=== PATIENT | male | born 1985 | race Hispanic/Latino ===

== ENCOUNTER 2024-06-24 10:33 | Emergency (ER) | payer BC ==
[~2024-06-24] VITALS: Ht 188 cm; Wt 81.6 kg
[2024-06-24] MEDS ORDERED: SULF1TAB42 PO (10:52)
--- NOTE | 2024-06-24 10:55 | ERN ---
General Chief Complaint: Abscess Stated Complaint: LOWER BACK PAIN Time Seen by MD: 10:35 Time Seen by Midlevel: 10:35 Source: patient History of Present Illness Initial Comments Patient is a 38-year-old male with no significant past medical history presenting to the emergency department with an abscess to the left upper buttock area just below the left side of his lower back that started several days ago. Patient states he has had this for several years but over the last couple of weeks it has progressively worsened. He was noticed an increase in redness and pain to the area so he decided to report to the ER for further evaluation. He specifically denies fever, chills, or any other symptoms at this time. Denies seeing a primary care doctor for this issue. Has not taking any oral antibiotics recently. Denies any past medical/surgical history. Allergies: Coded Allergies: No Known Allergies (Unverified Allergy, Unknown, 06/24/24) Home Meds Active Scripts Sulfamethoxazole/Trimethoprim (Bactrim Ds Tablet) 800 Mg-160 Mg Tablet, 1 TAB PO BID for 7 Days, #14 TAB 0 Refills Prov:CAMILLE FOSTER 06/24/24 Past Medical History Past Medical History: No Pertinent History Past Surgical History: None ROS Dictation CONSTITUTIONAL: Negative except for HPI HEAD/FACE: Negative except for HPI EENT: Negative except for HPI RESPIRATORY: Negative except for HPI GASTROINTESTINAL/ABDOMINAL: Negative except for HPI GENITOURINARY: Negative except for HPI MUSCULOSKELETAL: Negative except for HPI INTEGUMENTARY: Negative except for HPI NEUROLOGICAL/PSYCH: Negative except for HPI HEMATOLOGIC/LYMPHATIC: Negative except for HPI All Systems Negative, Except as noted above. 13 point review of systems assessed and all negative except for above. Physical Exam Physical Exam Dictation Vital Signs reviewed General Appearance: Alert, oriented x 3, no acute distress, well developed, nourished. Head and Face: non-traumatic. Eyes: PERRL, pink conjunctivas, eyelid no trauma, anterior chamber with arcus senilis. Ears: Pinnas intact and no signs of trauma or erythema ear canals clear and no discharge TM no erythema Nose: No discharge, no bleeding. Oropharynx: Mouth normal, tongue pink, pharynx clear,no erythema, tonsils no exudates, no abscesses noted, mucous membrane moist Neck: Supple, non-tender, no thyromegaly, no masses, no JVD, no bruits Breast:Deferred Chest:No tenderness, no crepitus, no paradoxical movement, no retractions Lungs:Clear, well-ventilated, symmetric, no rales, no wheezing, no rhonchi, no stridor, good breath sounds bilaterally Heart: Regular rate, regular rhythm, no murmur, no gallops Vascular: no peripheral edema, Abdomen: Soft, positive bowel sounds, nondistended, no guarding, nontender, no rebound, no masses no hepatomegaly, no splenomegaly, no Sanders's sign, no hernias. Rectal: Deferred Genital: Deferred Neurological: Normal speech, motor function intact, sensory function intact Musculoskeletal: Neck nontender, full range of motion, back nontender, full range of motion, Extremities: nontender, full range of motion Skin: There is a 2 x 2 cm circular area of erythema and induration to the left upper buttock area just below the left lumbar region consistent with an abscess, Lymphatic: Deferred MDM MDM: Patient is a 38-year-old male with no significant past medical history presenting to the emergency department with an abscess to the left upper buttock area just below the left side of his lower back that started several days ago. Patient states he has had this for several years but over the last couple of weeks it has progressively worsened. He was noticed an increase in redness and pain to the area so he decided to report to the ER for further evaluation. He specifically denies fever, chills, or any other symptoms at this time. Denies seeing a primary care doctor for this issue. Has not taking any oral antibiotics recently. Denies any past medical/surgical history. On physical examination there is an area of erythema and induration over the left upper buttock area. There is surrounding erythema and induration. The area is not ready to be drained at this time. The patient is healthy has no comorbidities. We will trial a course of oral antibiotics outpatient. The patient was given 1 g of Rocephin IM and will be discharged home with a prescription for Bactrim. Patient was advised to follow up with the primary care doctor in 2-3 days for repeat evaluation. If symptoms do not improve after course of antibiotics the patient was advised to report to the ER for further evaluation. He was to develop any new or worsening symptoms he was also advised to return. At this time the patient vital signs are unremarkable. The patient was not septic and is nontoxic appearing. Differential diagnosis: Abscess, cellulitis, There are no social concerns with this patient. Prescription drug management Prescriptions will include: Bactrim Medical management and examination interpretation discussions were had by me with other qualified healthcare professionals as indicated for the patient's care. ED Course Orders Procedure Category Date Status Time Ceftriaxone 1g Vial PHA 06/24/24 Complete (Rocephine 1g Inj) 11:00 Ketorolac PHA 06/24/24 Complete Tromethamine 30mg/Ml 11:00 Current Medications Medications (Trade) Dose Ordered Sig/Tyrone Route PRN Reason Start Time Stop Time Status Last Admin Dose Admin Ceftriaxone Sodium (ROCEphine 1G INJ) 1 gm ONCE ONCE IM 06/24/24 11:00 06/24/24 11:01 DC 06/24/24 11:29 Ketorolac Tromethamine (toRADol) 30 mg ONCE ONCE IM 06/24/24 11:00 06/24/24 11:01 DC 06/24/24 11:29 Vital Signs Date Time Temp Pulse Resp B/P (MAP) Pulse Ox O2 Delivery O2 Flow Rate FiO2 06/24/24 11:05 98.2 94 20 130/82 99 Room Air* 0 21 06/24/24 10:46 98.2 94 20 130/82 99 Room Air DX & DISP Disposition: Discharge Departure Impression: Primary Impression: Left buttock abscess Condition: Stable Scripts Sulfamethoxazole/Trimethoprim (Bactrim Ds Tablet) 800 Mg-160 Mg Tablet 1 TAB PO BID for 7 Days, #14 TAB 0 Refills Prov: CAMILLE FOSTER 06/24/24 Additional Instructions: Your vital signs are stable. Your physical examination reveals what appears to be an abscess to the left upper buttock area. You were given pain medication and an antibiotic injection in the emergency department. I have given you a prescription for oral antibiotics for outpatient management. If your abscess does not improve after taking oral antibiotics you will need to report to the ER for further evaluation. Follow up with your primary care provider in 2-3 days for repeat evaluation. Return to the ER if you develop any new or worsening symptoms Referrals: SELF,REFERRAL (PCP) Time of Disposition: 10:52 I have reviewed the case, and I agree with, Diagnosis and Plan CAMILLE FOSTER Jun 24, 2024 10:55 FABIAN BURCIAGA DO Jun 25, 2024 07:16
[2024-06-24 11:05] VITALS: BP 130/82; PULSE 94; RESP 20; TEMP 98.3; O2SAT 99
[2024-06-24] MEDS: ketOROlac 30MG VIAL (30MG/ML) IM ONE (11:29)
[2024-06-24] MEDS: cefTRIAXone 1G VIAL IM ONE (11:29)
== END 2024-06-24 11:38 | disposition home or self-care (01) ==
LOC: EDH 10:33
DX: L02.31 Cutaneous abscess of buttock (principal); Z79.899 Other long term (current) drug therapy
CPT/HCPCS: 99284; 96372 ×2; J1885; J0696